=== PATIENT | male | born 1950 | race Caucasian/White ===

== ENCOUNTER → 2023-11-03 11:32 | Outpatient (REF) | payer MEDICARE, OTHER, SELFPAY | LOC: HWRAD 11:32 | PROVIDERS: ATTENDING PHYSICIAN Family Medicine | DX: R74.8 Abnormal levels of other serum enzymes (principal); R74.01 Elevation of levels of liver transaminase levels | CPT/HCPCS: 74177; Q9967 ==

== ENCOUNTER → 2024-01-12 07:24 | Outpatient (REF) | payer MEDICARE, OTHER, SELFPAY ==
[2024-01-12 08:48] LABS: Hematocrit 47.6 % (39.0-52.0); Hemoglobin 15.8 g/dL (13.0-18.0); Mean Corp Hgb Conc. 33.2 g/dL (33.0-37.0); Mean Corpuscular Hgb 31.3 pg (27.0-31.0); Mean Corpuscular Volume 94.3 fL (80.0-94.0); Platelet Count 343 10^3/uL (130-400); Red Blood Cell Count 5.05 10^6/uL (4.70-6.10); Red Cell Dist. Width 13.7 % (11.5-14.5); White Blood Cell Count 8.3 10^3/uL (4.8-10.8)
[2024-01-12 09:21] LABS: Blood Urea Nitrogen 26 mg/dl (9-20); Calcium 10.1 mg/dl (8.4-10.2); Carbon Dioxide 22 mmol/L (22-30); Chloride 104 mmol/L (98-107); Glucose 195 mg/dl (70-99); Potassium 5.6 mmol/L (3.5-5.1); Sodium 140 mmol/L (135-145); eGFR > 60.00
== END ==
LOC: SDSPAT 07:24
PROVIDERS: ATTENDING PHYSICIAN Surgery; FAMILY PHYSICIAN Family Medicine
DX: Z01.818 Encounter for other preprocedural examination (principal)
CPT/HCPCS: 36415; 80048; 85027; 93005

== ENCOUNTER 2024-01-18 06:43 | Day surgery (SDC) | payer MEDICARE, OTHER, SELFPAY ==
[2024-01-12 10:12] VITALS: BMI 28.8
--- NOTE | 2024-01-13 15:53 | PTCARENOTE ---
K+ 5.6 collected on 01/12/24; Margarita at 's office was notified.
--- NOTE | 2024-01-15 15:04 | PTCARENOTE ---
Patients 01/11 potassium 5.6- reviewed by Dr. Navarro- No additional interventions indicated
[2024-01-18] VITALS (10 sets, daily range): BP systolic 111–143; BP diastolic 65–82; BMI 28.8
--- NOTE | 2024-01-18 12:28 | W.SUR.PREOP ---
Pre-Operative Surgical Note
-
I have examined this patient prior to the performance of the scheduled procedure.
The patient's condition is unchanged from the time of the current History and
Physical and the patient is able to undergo the scheduled procedure.
[2024-01-18 13:16] LABS: Glucose - Point of Care 169 mg/dl (70-99)
[2024-01-18] MEDS: SYRINGE NON-PUMP 50 ML IRRIG (14:21)
[2024-01-18] MEDS: SYRINGE NON-PUMP 50 MG IRRIG (14:21)
[2024-01-18 14:30] LABS: Glucose - Point of Care 160 mg/dl (70-99)
[2024-01-18] MEDS: DILAUDID 0.25 MG IV ×2 (14:36→14:47)
[2024-01-18] MEDS: Pyridium 200 MG PO (14:39)
[2024-01-18] MEDS: DETROL LA 4 MG PO (14:39)
== END 2024-01-18 15:45 | disposition home or self-care (01) ==
LOC: SDS 06:43
PROVIDERS: ATTENDING PHYSICIAN Surgery
DX: C67.2 Malignant neoplasm of lateral wall of bladder (principal)
CPT/HCPCS: 52235; 51720; C9738; 88307; 82962

== ENCOUNTER 2024-11-03 19:42 | Inpatient (IN) | payer MEDICARE, OTHER, SELFPAY ==
[2024-11-03] VITALS (7 sets, daily range): BP systolic 105–126; BP diastolic 55–72; BMI 24.1
--- NOTE | 2024-11-03 16:47 | ED.GENMED ---
History of Present Illness
General
Chief Complaint: Cold/Flu/URI Symptoms
Source: patient
Exam Limitations: none
Time Seen by Provider: 11/03/24 16:44
Nursing documentation reviewed up to this point in time: agreed with
History of Present Illness
History of Present Illness:
74-year-old male with a past medical history of hypertension, diabetes, who presents to the emergency department today with concerns of cough and shortness of breath. He reports that he recently traveled to [place] with his son and after
getting back, he has had a persistent cough. He reports coughing up a lot of phlegm. He is also had intermittent fevers up to relieved with Tylenol. His son was recently diagnosed with pneumonia. He saw his primary care provider who advised him
to go to the ER for further evaluation. Patient did report that a few days ago he fell while he was getting out of bed and he feels like his symptoms worsened since then. Patient did not hit his head at that time there was no loss of
consciousness, he did not have any injuries endured from the fall. Patient denies vomiting, sore throat, runny nose, chest pain, abdominal pain. He does not smoke.
Phy Exam
Physical Exam
Physical Exam:
General: Patient is well appearing and in no acute distress; non-toxic
Skin: Warm and dry, no rashes or lesions
Head: Normocephalic, atraumatic
Eyes: Sclera non-icteric. EOMs intact.
Cardiac: Mild tachycardia noted no murmurs
Peripheral Vascular: No lower extremity swelling or edema
Pulm: Increased respiratory rate, scattered rhonchi heard bilaterally
Abdomen: No abdominal tenderness to palpation
Neuro: CN II-XII intact, no focal neurologic deficits.
Psychiatric: Appropriate mood and affect.
Sepsis
Sepsis Criteria
Sepsis Criteria:
Sepsis secondary to pneumonia
Fever + elevated WBC + source of infection
Lactic acid 2.8, uremia noted but no signs of end organ dysfunction
Sepsis Screening
Sepsis Assessment: Sepsis
Sepsis Screen
Sepsis Screen: Sepsis
Date: 11/04/24
Time: 00:37
Course
Orders/Labs/Results
Orders:
Orders
11/03/24 Dinner
2000 calorie (17 carb) Diabetic
At Your Request: Full Participation
11/03/24 16:53
Cardiac Monitoring- Treatment ONCE
0.9% Sodium Chloride 500 ml [Nss] 500 ml IV BOLUS
11/03/24 16:54
CR Chest - 2 Views Urgent
Comment:
Reason For Exam: cough
11/03/24 17:00
COVID-19 Antigen Urgent
Source: Nasal Swab
Complete Blood Count/With Diff Urgent
Comprehensive Metabolic Panel Urgent
Influenza A+B Rapid Molecular Urgent
LIZ Source: Nasal Swab
Specimen Description:
11/03/24 17:37
Acetaminophen [Tylenol] 1,000 mg PO NOW STA
11/03/24 17:52
Lactic Acid Urgent
11/03/24 18:42
LevoFLOXacin 750 MG/150 ML [Levaquin] 750 mg in 150 ml IV NOW
11/03/24 18:55
Blood Culture Q30M
LIZ Source: Blood/Venous
Specimen Description:
Blood Culture Q30M
LIZ Source: Blood/Venous
Specimen Description:
11/03/24 19:08
Admit/Transfer Patient As Directed
Co-Sign Provider:
Level of Care: Inpatient admission
Assign to:: Medical/Surgical
Physician / Group: vesna
Diagnosis: sepsis pneumonia
Reason for Hospitalization: sepsis pneumonia
Expected length of stay greater than two midnights?: Yes
ELOS- Estimated Length of Stay in days: 2
I certify the patient meets the requirements for IP care: Yes
Code Status As Directed
Resuscitation Status: Full Code
PRN Pain Medication Management As Directed
May give lesser potent ordered pain med per pt: Yes
preference::
Protocol:: Medication orders for pain may be administered in a
manner that supports deferring to patient preference
when the pt is:
- Requesting an ordered lesser potent pain medication.
Least to most potent pain medications are defined
as: acetaminophen < NSAID < tramadol < opioids
(morphine, oxycodone, hydromorphone).
- Requesting a lesser dose of the same medication IF
ORDERED.
- Requesting a less intrusive route of administration
if both routes are prescribed by the provider (PO <
IV).
11/03/24 20:39
Lactate Level [Lactic Acid] Q6H
0.9% Sodium Chloride 1000 ml [Nss] 1,000 ml IV 100 mls/hr
Acetaminophen [Tylenol] 650 mg PO Q4HPRN PRN
Dextrose 50%-Water [Dextrose 50% Syringe] 12.5 grams IV [id number] PRN
Glucagon [GlucaGen] 1 mg IM PRN PRN
Heparin 5,000 units SC Q12
11/03/24 20:39
Activity As Directed
Activity Level: As Tolerated
Bedside Glucose Monitoring As Directed
Frequency: AC&HS
Additional Instructions:: Change to q6h if pt on TPN, tube feeding or not eating
Vital Signs As Directed
Frequency: Per unit guidelines
DX Deep Vein Thrombosis Video Routine
11/04/24 06:00
Complete Blood Count/With Diff IN AM
Comprehensive Metabolic Panel IN AM
Glycohemoglobin (HgbA1c) IN AM
11/04/24 07:30
Insulin Aspart Corrective Low [Novolog Flexpen-Low Resistance] See Protocol SC AC
11/04/24 20:00
LevoFLOXacin 750 MG/150 ML [Levaquin] 750 mg in 150 ml IV Q24H
Abnormal Lab Results
11/03/24 11/03/24
17:00 17:52
WBC 18.5 H 10^3/uL
(4.8-10.8)
RBC 4.52 L 10^6/uL
(4.70-6.10)
Plt Count 438 H 10^3/uL
(130-400)
Abs Immat Gran (auto) 0.2 H 10^3/uL
(0-0.05)
Absolute Neuts (auto) 16.2 H 10^3/uL
(1.4-6.5)
Absolute Lymphs (auto) 0.3 L 10^3/uL
(1.2-3.4)
Absolute Monos (auto) 1.6 H 10^3/uL
(0.1-0.6)
Immature Gran % 0.9 H %
(0-0.5)
Neutrophils % 87.8 H %
(42.2-75.2)
Lymphocytes % 1.8 L %
(20.5-51.1)
Sodium 130 L mmol/L
(135-145)
Carbon Dioxide 15 L mmol/L
(22-30)
BUN 34 H mg/dl
(9-20)
Glucose 330 H mg/dl
(70-99)
Lactic Acid 2.8 H mmol/L
(0.7-2.0)
AST 62 H U/L
(17-59)
Alkaline Phosphatase 150 H U/L
(38-126)
11/03/24 17:00
11/03/24 17:00
Vital Signs
Initial and Last Documented VS:
Initial Vital Signs
Temp Pulse Resp BP Pulse Ox
100.2 F 124 16 122/72 96
11/03/24 15:07 11/03/24 15:07 11/03/24 15:07 11/03/24 15:07 11/03/24 15:07
Last Documented Vital Signs
Temp Pulse Resp BP Pulse Ox
98.3 F 101 16 116/67 92
11/03/24 23:22 11/03/24 23:22 11/03/24 23:22 11/03/24 23:22 11/03/24 23:22
MDM/Problems Addressed
Differential Diagnosis Includes:
Pneumonia, bronchitis, COVID-19, influenza, atelectasis, aspiration pneumonia, COPD, CHF
MDM/Problems Addressed:
74-year-old male with a past medical history of hypertension, diabetes, who presents to the emergency department today with concerns of cough and shortness of breath. He was found to have a right sided pneumonia. He meets SIRS criteria. He is
febrile. He has a white blood cell count of 18,000 with left shift, he has elevated BUN however no evidence of acute kidney injury. His curb 65 score is 2 for elevated BUN and age. He is allergic to penicillins he gets a rash no history of
anaphylactic reaction. There is a documented allergy to cephalosporins patient unsure about this. For safety, will start levofloxacin rather than ceftriaxone and azithromycin. Patient referred for admission to hospitalist. Patient requiring
oxygen at this time.
*Pulse Oximetry
SaO2: 96
Oxygen Mode of Delivery: Room air
Patient hypoxic: no
*Critical Care Note
Total Time (30-74mins, 75-104mins- exclusive of procedures): Not Applicable
Data Reviewed
Review of Other/Old Records Reveals: Records (Reviewed history and physical from 12/10/2018 patient seen for end-stage osteoarthritis and had knee replacement) and Discharge Summary (No discharge summary in [facility] to review)
Source: patient
Patient Management
Escalation/DeEscalation of care consider admission/obs:
Patient referred for admission
ED Attending Note
-
Portions of this chart may have been created with voice recognition software.� Occasional wrong word or��sound alike� substitutions may have occurred due to the inherent limitations of voice recognition software.
Discharge Plan
Departure
Patient Disposition: Admit
Date of Disposition: 11/03/24
Time of Disposition: 18:47
Admit to: Med/Surg
Presentation/result/management discussed w/ accepting MD/DO: Hospitalist
Patient with high blood pressure during this ER visit?: No
Condition: Fair
Discharge Problem:
Community acquired pneumonia
Interventions
Interventions:
*Risk Screen - Suicide Last Done: 11/03/24 21:17
*Neglect/Abuse Screening Last Done: 11/03/24 15:08
*ED COVID-19 Vaccine History Last Done: 11/03/24 21:17
*Nursing Disposition Last Done: 11/03/24 20:34
ED- Pulmonary Assessment Last Done: 11/03/24 17:09
Discharge Date and Time
Discharge Date/Time: 11/03/24 20:34
[2024-11-03] MEDS: NSS 500 IV (17:06)
[2024-11-03 17:13] LABS: Hematocrit 40.9 % (39.0-52.0); Hemoglobin 13.6 g/dL (13.0-18.0); Mean Corp Hgb Conc. 33.3 g/dL (33.0-37.0); Mean Corpuscular Volume 90.5 fL (80.0-94.0); Nucleated Red Blood Cells % 0 % (-); Platelet Count 438 10^3/uL (130-400); Red Cell Dist. Width 13.4 % (11.5-14.5)
[2024-11-03 17:32] LABS: COVID-19 Antigen Negative (Negative)
[2024-11-03 17:43] LABS: ALT (SGPT) 44 U/L (0-50); AST (SGOT) 62 U/L (17-59); Albumin 4.0 g/dl (3.5-5.0); Alkaline Phosphatase 150 U/L (38-126); Blood Urea Nitrogen 34 mg/dl (9-20); Calcium 9.5 mg/dl (8.4-10.2); Carbon Dioxide 15 mmol/L (22-30); Chloride 100 mmol/L (98-107); Glucose 330 mg/dl (70-99); Potassium 5.1 mmol/L (3.5-5.1); Sodium 130 mmol/L (135-145); Total Protein 7.3 g/dl (6.3-8.2); eGFR > 60.00
[2024-11-03] MEDS: TYLENOL 1000 MG PO (17:48)
[2024-11-03] MEDS: LEVAQUIN 150 IV (18:58)
--- NOTE | 2024-11-03 19:11 | HPS.HSE ---
Family Physician
-
Family Physician:
Chief Complaint
-
cough, weakness
History of Present Illness
74-year-old male past medical history of osteoarthritis, obesity, hypertension, diabetes, pulmonary nodule, gout, sarcoma status post excision, hyperlipidemia, BPH, presenting with dry cough, weakness and minor fall without injury yesterday. Today
he had sweats and fever. Denies nausea vomiting or diarrhea. Denies chest pain. Denies sore throat.
Denies smoking or alcohol drugs.
Medical History
Past Medical History
Past Medical History: Reports Other (osteoarthritis, obesity, hypertension, diabetes, pulmonary nodule, gout, sarcoma status post excision, hyperlipidemia, BPH)
Past Surgical History: Reports None
Social History
Tobacco: Non-smoker
Alcohol: None
Drug: None
Family History
Family History: Not pertinent
Allergies / Home Medications
Allergies reflects when Allergies were last updated in [employer].
Home Medications with original date entered in [employer]
Allergy/Medication List:
Allergies
Allergy/AdvReac Type Severity Reaction Status Date / Time
Cephalosporins Allergy Rash Verified 01/18/24 13:01
Penicillins Allergy Rash Verified 01/18/24 13:01
Home Medications
metformin 1,000 mg tablet 1,000 mg PO BID 11/16/18
amlodipine 10 mg tablet 10 mg PO DAILY ##0 12/10/18
Atorvastatin 20 mg PO QPM 12/14/18
empagliflozin 25 mg tablet (Jardiance) 25 mg PO DAILY 10/14/22
acetaminophen 325 mg tablet 650 mg PO PRN PRN mild pain 01/13/24
allopurinol 300 mg tablet 150 mg PO DAILY 01/13/24
doxazosin 2 mg tablet 2 mg PO QPM 01/13/24
glimepiride 4 mg tablet 4 mg PO QPM 01/13/24
spironolactone 50 mg tablet 50 mg PO DAILY 01/13/24
valsartan 160 mg tablet (Diovan) 160 mg PO BID 01/13/24
Review of Systems
-
History Source: Patient
A 12 point ROS was completed and negative except as noted: Yes
Constitutional: Reports No Symptoms
EENT: Reports No Symptoms
Respiratory: Reports See HPI
Cardiac: Reports No Symptoms
Abdomen/GI: Reports No Symptoms
: Reports No Symptoms
Musculoskeletal: Reports No Symptoms
Skin: Reports No Symptoms
Neurological: Reports No Symptoms
Endocrine: Reports No Symptoms
Hematologic/Lymphatic: Reports No Symptoms
Psych: Reports No Symptoms
Physical Exam
Vital Signs
Vital Signs
Temp Pulse Resp BP Pulse Ox
99.4 F 108 23 126/58 94
11/03/24 17:50 11/03/24 18:30 11/03/24 18:30 11/03/24 18:07 11/03/24 18:30
Physical Exam
General: Well Developed, Well Nourished and No Apparent Distress
HEENT: NormoCephalic, Moist mucous membranes and Atraumatic
Respiratory: Clear
Cardiac: S1/S2 and Regular Rhythm; No Murmur or Rub
GI: Soft, Non Tender, Non Distended and Normal Bowel Sounds; No Organomegaly
Rectal: Deferred by Provider
Musculoskeletal: No Clubbing, No Cyanosis and No Edema
Skin: No Rash
Neuro: Nonfocal/grossly intact
Laboratory Results
-
11/03/24 17:00
11/03/24 17:00
Laboratory Results
Lactic Acid 2.8 mmol/L (0.7-2.0) H 11/03/24 17:52
Total Bilirubin 1.1 mg/dl (0.2-1.3) 11/03/24 17:00
AST 62 U/L (17-59) H 11/03/24 17:00
ALT 44 U/L (0-50) 11/03/24 17:00
Alkaline Phosphatase 150 U/L (38-126) H 11/03/24 17:00
Data Reviewed
-
Lab Data: Labs Reviewed by me
Old Records: Reviewed
Impression/Plan
-
IMPRESSION:
PLAN:
# Sepsis (fever, tachycardia, leukocytosis) secondary to right basilar community-acquired pneumonia
-Chest x-ray shows right basilar infiltrate consistent with pneumonia
-COVID-negative
-Lactic acid 2.8
-Check blood cultures
-IV fluids
- Levaquin given penicillin/cephalosporin allergies
Osteoarthritis
Obesity
Essential hypertension
- Continue amlodipine, valsartan, atenolol
Type 2 diabetes
- Hold Jardiance, glimepiride, metformin
- Insulin sliding scale
Pulmonary nodule
Gout
- Continue allopurinol
Sarcoma status post excision
Hyperlipidemia
- Continue statin
BPH
- Continue doxazosin, tolterodine,
Full code
DVT prophylaxis�heparin
Diabetic diet
--- NOTE | 2024-11-03 21:00 | PTCARENOTE ---
Pt transported from ED to 3W via stretcher. Pt independent from stretcher to bed, AAOX3, vitals stable. Pt started on IV fluids (NSS @100). Oriented to room and call ness within reach. Pt pleasant and cooperative, no complaints of pain.
[2024-11-03] MEDS: HEPARIN 5000 UNITS SC (21:13)
[2024-11-03] MEDS: NSS 1000 IV (21:15)
[2024-11-03 22:16] LABS: Glucose - Point of Care 203 mg/dl (70-99)
[2024-11-04 05:38] LABS: Hematocrit 36.7 % (39.0-52.0); Hemoglobin 12.4 g/dL (13.0-18.0); Mean Corp Hgb Conc. 33.8 g/dL (33.0-37.0); Mean Corpuscular Volume 89.3 fL (80.0-94.0); Nucleated Red Blood Cells % 0 % (-); Platelet Count 393 10^3/uL (130-400); Red Cell Dist. Width 13.4 % (11.5-14.5)
[2024-11-04 05:58] LABS: ALT (SGPT) 39 U/L (0-50); AST (SGOT) 48 U/L (17-59); Albumin 3.3 g/dl (3.5-5.0); Alkaline Phosphatase 138 U/L (38-126); Blood Urea Nitrogen 26 mg/dl (9-20); Calcium 9.1 mg/dl (8.4-10.2); Carbon Dioxide 18 mmol/L (22-30); Chloride 104 mmol/L (98-107); Estimated Creatinine Clearance 81 ml/min; Glucose 164 mg/dl (70-99); Potassium 4.6 mmol/L (3.5-5.1); Sodium 131 mmol/L (135-145); Total Protein 6.2 g/dl (6.3-8.2); eGFR > 60.00
--- NOTE | 2024-11-04 07:33 | W.PN.HOSP.TC ---
Today's Communication/Plan
-
Continue antibiotics
Assessment / Plan
Assessment / Plan
Impression:
74-year-old male past medical history of osteoarthritis, obesity, hypertension, diabetes, pulmonary nodule, gout, sarcoma status post excision, hyperlipidemia, BPH, presenting with dry cough, weakness and minor fall without injury yesterday. Today
he had sweats and fever. Denies nausea vomiting or diarrhea. Denies chest pain. Denies sore throat.
Denies smoking or alcohol drugs.
Started on antibiotics, shortness of breath and cough improved
Assessment/plan:
Sepsis (fever, tachycardia, leukocytosis) secondary to right basilar community-acquired pneumonia
-Chest x-ray shows right basilar infiltrate consistent with pneumonia
-COVID-negative
-Lactic acid 2.8
- blood cultures Pending
-IV fluids
- Levaquin given penicillin/cephalosporin allergies
Essential hypertension
- Continue amlodipine, valsartan, atenolol
History of diabetes mellitus
Continue home medication
Insulin sliding scale
Diabetic diet
Hemoglobin A1c 6.9
Gout
- Continue allopurinol
Hyperlipidemia
- Continue statin
BPH
- Continue doxazosin, tolterodine,
Osteoarthritis
Pulmonary nodule
Sarcoma status post excision
Obesity
CODE STATUS: Full code
DVT prophylaxis: Heparin
Diet: DM diet
Disposition: Continue antibiotics
Total time spent on today's encounter was 65 minutes which included time spent in counseling the patient/family regarding diagnosis and treatment plan as listed above, goals of care, and symptom management. Case was discussed with nursing staff,
specialists, and care coordinators/case management. All labs and imaging personally reviewed by me. Remainder the time spent in detailed review of previous records, lab data, imaging, and other medical provider documentation.
Anticipated Discharge: 24 - 48 hours
Subjective/Interval History
-
Date of Service: November 04, 2024
Patient seen and examined at bedside, denies any chest pain , shortness of breath Improved, no abdominal pain, no nausea, no vomiting, no diarrhea or constipation.
Objective Data
-
Labs:
Laboratory Results
11/04/24
05:11
WBC 18.8 H
Hgb 12.4 L
Hct 36.7 L
Plt Count 393
Sodium 131 L
Potassium 4.6
Chloride 104
Carbon Dioxide 18 L
BUN 26 H
Creatinine 0.9
Glucose 164 H
Calcium 9.1
Total Bilirubin 0.9
AST 48
ALT 39
Alkaline Phosphatase 138 H
Vital Signs:
Vital Signs
Temp Pulse Resp BP Pulse Ox
98.3 F 101 16 116/67 92
11/03/24 23:22 11/03/24 23:22 11/03/24 23:22 11/03/24 23:22 11/03/24 23:22
I&O
11/03/24 11/04/24 11/05/24
06:59 06:59 06:59
Intake Total 240 / 240
Output Total 200 / 200
Balance 40 / 40
Physical Exam
-
General: Well Developed, Well Nourished, No Apparent Distress and Comfortable
HEENT: Normocephalic, Atraumatic, Moist Mucous Membranes, No Ptosis, PERRLA and Nose Appears Normal
Respiratory: Rales, Rhonchi and Non Labored Respirations
Cardiac: Regular Rhythm and S1/S2
Breast: Deferred by me
GI: Soft, Nontender, Nondistended and Normal Bowel Sounds
Genito-urinary: No Costovertebral Tender
Musculoskeletal: No Clubbing, No Cyanosis and No Edema
Skin: Warm
Neuro: Awake, Alert, Oriented, AO x 3 and No Motor Deficits
Psych: Calm
Data Reviewed
-
Diagnostic Radiology: Image personally visualized and interpreted and Report Reviewed by me
CT Scan: Image personally visualized and interpreted and Report Reviewed by me
Ultrasound: Image personally visualized and interpreted and Report Reviewed by me
MRI: Image personally visualized and interpreted and Report Reviewed by me
Medical Tests (Nuc Med, Echo etc): Image personally visualized and interpreted and Report Reviewed by me
Labs: Labs Reviewed by me
Old Records: Reviewed
[2024-11-04 07:44] LABS: Glucose - Point of Care 243 mg/dl (70-99)
[2024-11-04 07:53] VITALS: BP 124/73
[2024-11-04] MEDS: TENORMIN 100 MG PO (07:59)
[2024-11-04] MEDS: HEPARIN 5000 UNITS SC ×2 (07:59→20:12)
[2024-11-04] MEDS: ZYLOPRIM 150 MG PO (07:59)
[2024-11-04] MEDS: DIOVAN 160 MG PO ×2 (07:59→20:12)
[2024-11-04] MEDS: DETROL 4 MG PO ×2 (08:00→20:12)
[2024-11-04] MEDS: NORVASC 10 MG PO (08:00)
[2024-11-04] MEDS: NOVOLOG FLEXPEN-LOW RESISTANCE 2 UNITS SC (08:01)
[2024-11-04] MEDS: NSS 1000 IV ×2 (08:03→17:30)
[2024-11-04 09:49] LABS: Glycohemoglobin (HgbA1c) 6.9 % (4.0-5.6)
[2024-11-04 11:46] LABS: Glucose - Point of Care 199 mg/dl (70-99)
[2024-11-04] MEDS: NOVOLOG FLEXPEN-LOW RESISTANCE 1 UNITS SC (12:54)
--- NOTE | 2024-11-04 15:39 | CM ---
Patient seen at bedside
IA completed
Lives in a 2 story home, [address], flight of stairs to bedroom/bathroom
PLOF: Independent
Denies DME
Denies VN/has had outpatient PT in the past
PCP: Dr. Rodriguez
Pharmacy: [facility]
PLAN: home, no needs anticipated, CM to continue to follow
[2024-11-04 16:23] VITALS: BP 142/82
[2024-11-04 17:13] LABS: Glucose - Point of Care 124 mg/dl (70-99)
[2024-11-04] MEDS: NOVOLOG FLEXPEN-LOW RESISTANCE SC (17:19)
[2024-11-04] MEDS: LIPITOR 20 MG PO (17:30)
[2024-11-04] MEDS: CARDURA 2 MG PO (17:30)
--- NOTE | 2024-11-04 17:30 | PN.CDI ---
CDI
- -
CDI:
Physician Documentation Request
Admit Date: 11/03/24 19:42
Dear Doctor Bri,
Patient is admitted with sepsis secondary to community acquired pneumonia.
11/03 lactic acid 2.8
Please clarify which of the following most accurately describes the status of the patient's infection:
Severe Sepsis
- Sepsis with associated acute organ dysfunction, such as renal or respiratory failure
Sepsis only
Other
Use of terms such as suspected, likely, concern for, or probable (associated with a specific diagnosis that is being evaluated, monitored, or treated as if it exists) are acceptable and can be coded in the inpatient setting, when documented at the
time of discharge.
Thank you,
Carmina Rojas RN, BSN
CDI Specialist
tiger text
Please use your independent medical judgment in providing your response.
--- NOTE | 2024-11-04 17:34 | PN.CDI ---
CDI
- -
CDI:
Physician Documentation Request
Admit Date: 11/03/24 19:42
Dear Doctor Alyse,
Patient admitted for Sepsis secondary to right basilar community-acquired pneumonia.
Sodium results:
Laboratory Tests
11/03/24 11/04/24
17:00 05:11
Sodium 130 L 131 L
Could you please provide a diagnosis that supports the above lab abnormalities and additional evaluation/monitoring:
Hyponatremia
Abnormal lab value clinically insignificant
Other
Use of terms such as suspected, likely, concern for, or probable (associated with a specific diagnosis that is being evaluated, monitored, or treated as if it exists) are acceptable and can be coded in the inpatient setting, when documented at the
time of discharge.
Thank you,
Carmina Rojas RN, BSN
CDI Specialist
tiger text
Please use your independent medical judgment in providing your response.
[2024-11-04] MEDS: LEVAQUIN 150 IV (20:12)
[2024-11-04 21:55] LABS: Glucose - Point of Care 273 mg/dl (70-99)
[2024-11-04 23:00] VITALS: BP 110/55
[2024-11-05 05:54] LABS: Hematocrit 36.1 % (39.0-52.0); Hemoglobin 12.6 g/dL (13.0-18.0); Mean Corp Hgb Conc. 34.9 g/dL (33.0-37.0); Mean Corpuscular Volume 88.3 fL (80.0-94.0); Platelet Count 400 10^3/uL (130-400); Red Cell Dist. Width 13.4 % (11.5-14.5)
[2024-11-05 06:16] LABS: Blood Urea Nitrogen 25 mg/dl (9-20); Calcium 8.6 mg/dl (8.4-10.2); Carbon Dioxide 18 mmol/L (22-30); Chloride 105 mmol/L (98-107); Estimated Creatinine Clearance 81 ml/min; Glucose 134 mg/dl (70-99); Potassium 4.9 mmol/L (3.5-5.1); Sodium 131 mmol/L (135-145); eGFR > 60.00
[2024-11-05 07:00] VITALS: BP 118/66
[2024-11-05] MEDS: NSS IV (08:27)
[2024-11-05] MEDS: NOVOLOG FLEXPEN-LOW RESISTANCE SC (08:36)
[2024-11-05 08:37] LABS: Glucose - Point of Care 146 mg/dl (70-99)
[2024-11-05] MEDS: DETROL 4 MG PO ×2 (08:37→20:25)
[2024-11-05] MEDS: TENORMIN 100 MG PO (08:38)
[2024-11-05] MEDS: ZYLOPRIM 150 MG PO (08:39)
[2024-11-05] MEDS: NORVASC 10 MG PO (08:44)
[2024-11-05] MEDS: HEPARIN 5000 UNITS SC ×2 (08:45→20:24)
[2024-11-05] MEDS: DIOVAN 160 MG PO ×2 (08:45→20:24)
--- NOTE | 2024-11-05 11:37 | W.PN.HOSP.TC ---
Addendum entered and electronically signed by Bri Cullen MD 11/05/24 14:51:
Severe Sepsis
- Sepsis with associated acute organ dysfunction (lactic acidosis)
Addendum entered and electronically signed by Bri Cullen MD 11/05/24 14:50:
o��� Hyponatremia
Original Note:
Today's Communication/Plan
-
Continue antibiotics
Trend leukocytosis.
Possible discharge in the morning.
Assessment / Plan
Assessment / Plan
Impression:
74-year-old male past medical history of osteoarthritis, obesity, hypertension, diabetes, pulmonary nodule, gout, sarcoma status post excision, hyperlipidemia, BPH, presenting with dry cough, weakness and minor fall without injury yesterday. Today
he had sweats and fever. Denies nausea vomiting or diarrhea. Denies chest pain. Denies sore throat.
Denies smoking or alcohol drugs.
Started on antibiotics, shortness of breath and cough improved
Leukocytosis continue to
Assessment/plan:
Sepsis (fever, tachycardia, leukocytosis) secondary to right basilar community-acquired pneumonia
-Chest x-ray shows right basilar infiltrate consistent with pneumonia
-COVID-negative
-Lactic acid 2.8
- blood cultures negative so far
-IV fluids
- Levaquin given penicillin/cephalosporin allergies
Essential hypertension
- Continue amlodipine, valsartan, atenolol
History of diabetes mellitus
Continue home medication
Insulin sliding scale
Diabetic diet
Hemoglobin A1c 6.9
Gout
- Continue allopurinol
Hyperlipidemia
- Continue statin
BPH
- Continue doxazosin, tolterodine,
Osteoarthritis
Pulmonary nodule
Sarcoma status post excision
Obesity
CODE STATUS: Full code
DVT prophylaxis: Heparin
Diet: DM diet
Disposition: Continue antibiotics
Trend leukocytosis.
Possible discharge in the morning.
Total time spent on today's encounter was 65 minutes which included time spent in counseling the patient/family regarding diagnosis and treatment plan as listed above, goals of care, and symptom management. Case was discussed with nursing staff,
specialists, and care coordinators/case management. All labs and imaging personally reviewed by me. Remainder the time spent in detailed review of previous records, lab data, imaging, and other medical provider documentation.
Anticipated Discharge: Within 24 hours
Subjective/Interval History
-
Date of Service: November 05, 2024
Patient seen and examined at bedside, denies any chest pain , shortness of breath Improved, no abdominal pain, no nausea, no vomiting, has diarrhea.
Objective Data
-
Labs:
Laboratory Results
11/05/24
05:34
WBC 14.6 H
Hgb 12.6 L
Hct 36.1 L
Plt Count 400
Sodium 131 L
Potassium 4.9
Chloride 105
Carbon Dioxide 18 L
BUN 25 H
Creatinine 0.9
Glucose 134 H
Calcium 8.6
Vital Signs:
Vital Signs
Temp Pulse Resp BP Pulse Ox
98.6 F 91 16 118/66 95
11/05/24 07:00 11/05/24 08:45 11/05/24 07:00 11/05/24 08:45 11/05/24 07:00
I&O
11/04/24 11/05/24 11/06/24
06:59 06:59 06:59
Intake Total 240 / 240 2375 / 2375
Output Total 200 / 200 200 / 200
Balance 40 / 40 2175 / 2175
Physical Exam
-
General: Well Developed, Well Nourished, No Apparent Distress and Comfortable
HEENT: Normocephalic, Atraumatic, Moist Mucous Membranes, No Ptosis, PERRLA and Nose Appears Normal
Respiratory: Rales, Rhonchi and Non Labored Respirations
Cardiac: Regular Rhythm and S1/S2
Breast: Deferred by me
GI: Soft, Nontender, Nondistended and Normal Bowel Sounds
Genito-urinary: No Costovertebral Tender
Musculoskeletal: No Clubbing, No Cyanosis and No Edema
Skin: Warm
Neuro: Awake, Alert, Oriented, AO x 3 and No Motor Deficits
Psych: Calm
[2024-11-05 11:44] LABS: Glucose - Point of Care 222 mg/dl (70-99)
[2024-11-05] MEDS: NOVOLOG FLEXPEN-LOW RESISTANCE 2 UNITS SC (11:58)
[2024-11-05] MEDS: VISBIOME 2 CAP PO (12:15)
[2024-11-05 15:00] VITALS: BP 100/66
[2024-11-05 17:05] LABS: Glucose - Point of Care 194 mg/dl (70-99)
[2024-11-05] MEDS: NOVOLOG FLEXPEN-LOW RESISTANCE 1 UNITS SC (17:41)
[2024-11-05] MEDS: LIPITOR 20 MG PO (17:49)
[2024-11-05 18:16] VITALS: BP 97/65
[2024-11-05] MEDS: CARDURA PO (18:16)
[2024-11-05] MEDS: LEVAQUIN 150 IV (20:24)
[2024-11-05 21:46] LABS: Glucose - Point of Care 239 mg/dl (70-99)
[2024-11-05 23:00] VITALS: BP 94/64
[2024-11-06 05:56] LABS: Hematocrit 35.4 % (39.0-52.0); Hemoglobin 12.0 g/dL (13.0-18.0); Mean Corp Hgb Conc. 33.9 g/dL (33.0-37.0); Mean Corpuscular Volume 88.1 fL (80.0-94.0); Platelet Count 394 10^3/uL (130-400); Red Cell Dist. Width 13.1 % (11.5-14.5)
[2024-11-06 06:34] LABS: Blood Urea Nitrogen 26 mg/dl (9-20); Calcium 8.5 mg/dl (8.4-10.2); Carbon Dioxide 17 mmol/L (22-30); Chloride 108 mmol/L (98-107); Estimated Creatinine Clearance 105 ml/min; Glucose 148 mg/dl (70-99); Potassium 4.2 mmol/L (3.5-5.1); Sodium 131 mmol/L (135-145); eGFR > 60.00
[2024-11-06 07:36] VITALS: BP 116/66
[2024-11-06 07:56] LABS: Glucose - Point of Care 192 mg/dl (70-99)
[2024-11-06] MEDS: ZYLOPRIM 150 MG PO (09:05)
[2024-11-06] MEDS: VISBIOME 2 CAP PO (09:05)
[2024-11-06] MEDS: DIOVAN 160 MG PO (09:06)
[2024-11-06] MEDS: DETROL 4 MG PO (09:06)
[2024-11-06] MEDS: NORVASC PO (09:08)
[2024-11-06] MEDS: HEPARIN 5000 UNITS SC (09:08)
[2024-11-06] MEDS: TENORMIN 100 MG PO (09:10)
[2024-11-06] MEDS: NOVOLOG FLEXPEN-LOW RESISTANCE 1 UNITS SC (09:11)
--- NOTE | 2024-11-06 10:20 | W.PN.HOSP.TC ---
Today's Communication/Plan
-
Discharge home on oral antibiotic
Assessment / Plan
Assessment / Plan
Impression:
74-year-old male past medical history of osteoarthritis, obesity, hypertension, diabetes, pulmonary nodule, gout, sarcoma status post excision, hyperlipidemia, BPH, presenting with dry cough, weakness and minor fall without injury yesterday. Today
he had sweats and fever. Denies nausea vomiting or diarrhea. Denies chest pain. Denies sore throat.
Denies smoking or alcohol drugs.
Started on antibiotics, shortness of breath and cough improved
Leukocytosis continue to improve.
Shortness of breath and coughing resolved.
Will be discharged home on oral antibiotic in form of Levaquin
Assessment/plan:
Severe sepsis with acute organ dysfunction
Patient meets sepsis criteria with (fever, tachycardia, leukocytosis) secondary to right basilar community-acquired pneumonia
Acute organ dysfunction with elevated lactic acid
-Chest x-ray shows right basilar infiltrate consistent with pneumonia
-COVID-negative
-Lactic acid 2.8
- blood cultures negative so far
-IV fluids
- Levaquin given penicillin/cephalosporin allergies
Lactic acidosis secondary to sepsis
Resolved
Essential hypertension
- Continue amlodipine, valsartan, atenolol
History of diabetes mellitus
Continue home medication
Insulin sliding scale
Diabetic diet
Hemoglobin A1c 6.9
Gout
- Continue allopurinol
Hyperlipidemia
- Continue statin
BPH
- Continue doxazosin, tolterodine,
Osteoarthritis
Pulmonary nodule
Sarcoma status post excision
Obesity
CODE STATUS: Full code
DVT prophylaxis: Heparin
Diet: DM diet
Disposition: Discharge home on oral antibiotic
Total time spent on today's encounter was 65 minutes which included time spent in counseling the patient/family regarding diagnosis and treatment plan as listed above, goals of care, and symptom management. Case was discussed with nursing staff,
specialists, and care coordinators/case management. All labs and imaging personally reviewed by me. Remainder the time spent in detailed review of previous records, lab data, imaging, and other medical provider documentation.
Anticipated Discharge: Today
Subjective/Interval History
-
Date of Service: November 06, 2024
Patient seen and examined at bedside, denies any chest pain or shortness of breath, no abdominal pain, no nausea, no vomiting, no diarrhea or constipation.
Objective Data
-
Labs:
Laboratory Results
11/06/24
05:23
WBC 11.6 H
Hgb 12.0 L
Hct 35.4 L
Plt Count 394
Sodium 131 L
Potassium 4.2
Chloride 108 H
Carbon Dioxide 17 L
BUN 26 H
Creatinine 0.7
Glucose 148 H
Calcium 8.5
Vital Signs:
Vital Signs
Temp Pulse Resp BP Pulse Ox
97.7 F 75 16 116/66 96
11/06/24 07:36 11/06/24 07:36 11/06/24 07:36 11/06/24 07:36 11/06/24 07:36
I&O
11/05/24 11/06/24 11/07/24
06:59 06:59 06:59
Intake Total 2375 / 2375 600 / 600
Output Total 200 / 200 450 / 450
Balance 2175 / 2175 150 / 150
Physical Exam
-
General: Well Developed, Well Nourished, No Apparent Distress and Comfortable
HEENT: Normocephalic, Atraumatic, Moist Mucous Membranes, No Ptosis, PERRLA and Nose Appears Normal
Respiratory: Rales and Non Labored Respirations
Cardiac: Regular Rhythm and S1/S2
Breast: Deferred by me
GI: Soft, Nontender, Nondistended and Normal Bowel Sounds
Genito-urinary: No Costovertebral Tender
Musculoskeletal: No Clubbing, No Cyanosis and No Edema
Skin: Warm
Neuro: Awake, Alert, Oriented, AO x 3 and No Motor Deficits
Psych: Calm
--- NOTE | 2024-11-06 10:26 | W.DCSUMMARY ---
Discharge Summary
Discharge Data
Date of Admission: 11/03/24
Date of Discharge: 11/06/24
Total time spent discharging patient (in min): 40
-
Pending Results: No
Hospital Course
Physical Exam
-
General: Well Developed, Well Nourished, No Apparent Distress and Comfortable
HEENT: Normocephalic, Atraumatic, Moist Mucous Membranes, No Ptosis, PERRLA and Nose Appears Normal
Respiratory: Rales and Non Labored Respirations
Cardiac: Regular Rhythm and S1/S2
Breast: Deferred by me
GI: Soft, Nontender, Nondistended and Normal Bowel Sounds
Genito-urinary: No Costovertebral Tender
Musculoskeletal: No Clubbing, No Cyanosis and No Edema
Skin: Warm
Neuro: Awake, Alert, Oriented, AO x 3 and No Motor Deficits
Psych: Calm
Hospital course
74-year-old male past medical history of osteoarthritis, obesity, hypertension, diabetes, pulmonary nodule, gout, sarcoma status post excision, hyperlipidemia, BPH, presenting with dry cough, weakness and minor fall without injury yesterday. Today
he had sweats and fever. Denies nausea vomiting or diarrhea. Denies chest pain. Denies sore throat.
Denies smoking or alcohol drugs.
Started on antibiotics, shortness of breath and cough improved
Leukocytosis continue to improve.
Shortness of breath and coughing resolved.
Will be discharged home on oral antibiotic in form of Levaquin
During hospitalization patient was treated from the following
Severe sepsis with acute organ dysfunction
Patient meets sepsis criteria with (fever, tachycardia, leukocytosis) secondary to right basilar community-acquired pneumonia
Acute organ dysfunction with elevated lactic acid
-Chest x-ray shows right basilar infiltrate consistent with pneumonia
-COVID-negative
-Lactic acid 2.8
- blood cultures negative so far
-IV fluids
- Levaquin given penicillin/cephalosporin allergies
Lactic acidosis secondary to sepsis
Resolved
Essential hypertension
- Continue amlodipine, valsartan, atenolol
History of diabetes mellitus
Continue home medication
Insulin sliding scale
Diabetic diet
Hemoglobin A1c 6.9
Gout
- Continue allopurinol
Hyperlipidemia
- Continue statin
BPH
- Continue doxazosin, tolterodine,
Osteoarthritis
Pulmonary nodule
Sarcoma status post excision
Obesity
CODE STATUS: Full code
DVT prophylaxis: Heparin
Diet: DM diet
Disposition: Discharge home on oral antibiotic
Total time spent on today's encounter was 40 minutes which included time spent in counseling the patient/family regarding diagnosis and treatment plan as listed above, goals of care, and symptom management. Case was discussed with nursing staff,
specialists, and care coordinators/case management. All labs and imaging personally reviewed by me. Remainder the time spent in detailed review of previous records, lab data, imaging, and other medical provider documentation.
Anticipated Discharge: Today
Discharge Plan
-
Patient Disposition: Home (Routine Discharge)
Discharge Diagnosis/Procedures: Sepsis secondary to pneumonia.
Diabetes mellitus.
Hyponatremia.
BPH
Diabetes
Diet: Diabetic, Carb Controlled
Activity: As tolerated
Referrals:
Harriet Rodriguez DO [Family Provider, Family Practice]
Prescriptions:
New
levofloxacin 500 mg tablet
500 mg PO DAILY 5 Days Qty: 5 0RF
Saccharomyces boulardii [Probiotic (S.boulardii)] 250 mg capsule
250 mg PO DAILY Qty: 10 0RF
Continued
metformin 1,000 MG tablet
1,000 mg PO BID
amlodipine 10 MG tablet
10 mg PO DAILY Qty: 0 0RF
atorvastatin [Lipitor] 20 mg Tablet
20 mg PO QPM Qty: 0
Jardiance 25 mg Tablet
25 mg PO DAILY
Patient Comments:
patient buys from [facility]
allopurinol 300 mg Tablet
150 mg PO DAILY
acetaminophen 325 MG tablet
650 mg PO Q6HPRN PRN (Reason: mild pain)
valsartan [Diovan] 160 mg Tablet
160 mg PO BID
spironolactone 50 mg Tablet
50 mg PO DAILY
Ozempic 1 mg/dose (4 mg/3 mL) Pen Injector
1 mg SC TH
Discharge Orders:
Discharge Patient (As Directed); Ordered 11/06/24
Ordered By: Bri Cullen
Discharge Date and Time
Print Language: AZERI
[2024-11-06 11:23] VITALS: BP 118/68
--- NOTE | 2024-11-06 11:27 | CM ---
Pt discharged to home, no identified needs. IMM provided, signed and placed on chart.
== END 2024-11-06 11:09 | disposition home or self-care (01) | DRG 871 ==
LOC: 3 WEST ACU 19:42
PROVIDERS: Physician Assistant; ADMITTING PHYSICIAN Hospitalist; ATTENDING PHYSICIAN General Practice; EMERGENCY PHYSICIAN Emergency Medicine; FAMILY PHYSICIAN Family Medicine
DX: A41.89 Other specified sepsis (principal); J18.9 Pneumonia, unspecified organism; E87.1 Hypo-osmolality and hyponatremia; E87.20 Acidosis, unspecified; R65.20 Severe sepsis without septic shock; I10 Essential (primary) hypertension; E11.9 Type 2 diabetes mellitus without complications; E66.9 Obesity, unspecified; R91.1 Solitary pulmonary nodule; M10.9 Gout, unspecified; E78.5 Hyperlipidemia, unspecified; N40.0 Benign prostatic hyperplasia without lower urinary tract symptoms; M19.90 Unspecified osteoarthritis, unspecified site; Z79.84 Long term (current) use of oral hypoglycemic drugs; Z79.85 Long-term (current) use of injectable non-insulin antidiabetic drugs; Z11.52 Encounter for screening for COVID-19; Z79.899 Other long term (current) drug therapy
CPT/HCPCS: 71046; 80048; 80053; 82962; 83036; 83605; 85025; 85027; 87040; 87502; 87811; 96361; 96365; 96366; 99284

== ENCOUNTER → 2024-11-21 10:09 | Outpatient (REF) | payer MEDICARE, OTHER, SELFPAY | LOC: HWRAD 10:09 | PROVIDERS: ATTENDING PHYSICIAN Family Medicine | DX: J18.9 Pneumonia, unspecified organism (principal) | CPT/HCPCS: 71046 ==